=== PATIENT | female | born 1965 | race Two or more races ===

== ENCOUNTER 2022-05-12 11:28 | Emergency (ER) | payer OTHER ==
[~2022-05-12] VITALS: Ht 167.6 cm; Wt 65.0 kg
[2022-05-12 12:15] LABS: BASOPHILS % 0.6 % (0.0-2.0); HEMOGLOBIN. 10.7 g/dL (12.0-16.0); LYMPHOCYTES % 52.5 % (20.0-50.0); MEAN CORPUSCULAR HEMOGLOBIN 37.3 pg (28.0-32.0); MEAN CORPUSCULAR VOLUME 108.1 fL (81.0-99.0); MEAN PLATELET VOLUME 7.5 fl (7.4-10.4); MONOCYTES % 12.9 % (2.0-8.0); PLATELET 147 x1000/uL (130-400); RED BLOOD CELL COUNT 2.86 mill/uL (4.2-5.4); RED CELL DISTRIBUTION WIDTH 14.5 % (11.6-14.6)
[2022-05-12 12:22] LABS: CHLORIDE 103 mEq/L (98-107)
[2022-05-12 12:53] LABS: ETHANOL BLOOD 463 mg/dL
[2022-05-12] MEDS ORDERED: POTASSIUM CHLORIDE 20MEQ TABLET SR PO ONE (13:30)
[2022-05-12 15:16] LABS: CLARITY URINE CLEAR (CLEAR); COLOR URINE YELLOW (YELLOW); KETONES URINE NEGATIVE (NEGATIVE); LEUKOCYTE ESTERASE URINE NEGATIVE (NEGATIVE); NITRITE URINE NEGATIVE (NEGATIVE); OCCULT BLOOD URINE NEGATIVE (NEGATIVE); PH URINE 6.5 (4.5-8.0); PROTEIN URINE NEGATIVE (NEGATIVE); SPECIFIC GRAVITY URINE 1.003 (1.005-1.030); UROBILINOGEN URINE 0.2 E.U./dL (0.2-1.0)
[2022-05-12 16:03] LABS: *AMPHETAMINES SCREEN URINE NEGATIVE (NEGATIVE); *BARBITURATES SCREEN URINE NEGATIVE (NEGATIVE); *BENZODIAZEPINES SCREEN URINE NEGATIVE (NEGATIVE); *COCAINE SCREEN URINE NEGATIVE (NEGATIVE); CANNABINOID URINE SCREEN NEGATIVE (NEGATIVE); METHADONE URINE SCREEN NEGATIVE (NEGATIVE); OPIATES URINE SCREEN NEGATIVE (NEGATIVE); PHENCYCLIDINE URINE SCREEN NEGATIVE (NEGATIVE)
[2022-05-12] MEDS ORDERED: POTASSIUM CHLORIDE 20MEQ TABLET SR PO NR ×2 (17:30)
[2022-05-12 18:07] VITALS: BP 110/73
== END 2022-05-12 18:12 | disposition home or self-care (01) ==
LOC: EDBD 11:33 → ER 11:33
DX: T51.0X1A Toxic effect of ethanol, accidental (unintentional), initial encounter (principal); Y92.89 Other specified places as the place of occurrence of the external cause; E87.6 Hypokalemia
CPT/HCPCS: 36415; 80053; 80305; 80320; 81003; 85025; 99283; G0480

== ENCOUNTER 2023-07-21 16:11 | Emergency (ER) | payer OTHER ==
[~2023-07-21] VITALS: Ht 160 cm; Wt 70.0 kg
[~2023-07-21 16:11] MED LIST: CEPH500T MT; IBUP-2030 MT
[2023-07-21 16:29] VITALS: BP 109/76; PULSE 83; RESP 16; TEMP 98.2
[2023-07-21] MEDS ORDERED: SODIUM CHLORIDE 0.9% 1,000 ML IV ONE (16:45)
[2023-07-21] MEDS ORDERED: INSULIN REGULAR (HUMULIN R) 300UNITS/3ML VIAL SUBCUT ONE (16:45)
[2023-07-21 17:49] LABS: CHLORIDE 111 mEq/L (98-107); INDEX HEMOLYSI 1 (1-3); INDEX ICTERIC 1 (1-4); INDEX LIPEMIC 1 (1-3); POTASSIUM 3.6 mEq/L (3.5-5.1); SODIUM 141 mEq/L (136-145)
[2023-07-21 17:55] LABS: CARBON DIOXIDE 23 mEq/L (21-32); CREATININE 0.5 mg/dL (0.6-1.3); GLUCOSE 89 mg/dL (70-105); PHOSPHORUS 4.1 mg/dL (2.5-4.9); UREA NITROGEN BLOOD 7 mg/dL (7-21)
[2023-07-21 18:05] LABS: ETHANOL BLOOD 382 mg/dL (<10)
[2023-07-21] MEDS ORDERED: NAPR-1176 MT (19:04)
== END 2023-07-21 20:22 | disposition home or self-care (01) ==
LOC: ER 16:11
DX: M24.575 Contracture, left foot (principal); J45.909 Unspecified asthma, uncomplicated
CPT/HCPCS: 36415; 73620; 80048; 80051; 80320; 83735; 84100; 99284; J7030; G0480

== ENCOUNTER 2023-10-22 00:06 | Emergency (ER) | payer OTHER ==
[~2023-10-22] VITALS: Ht 167.6 cm; Wt 71.0 kg
[~2023-10-22 00:06] MED LIST changes: +NAPR-1176 MT
[2023-10-22] MEDS ORDERED: IPRATROPIUM BROMIDE (0.02%) 0.5MG/2.5ML NEB HHN STA (00:28)
[2023-10-22] MEDS ORDERED: METHYLPREDNISOLONE SOD SUCC 125MG/2ML (ACT-O-VIAL) IV STA (00:28)
[2023-10-22] MEDS ORDERED: SODIUM CHLORIDE 0.9% 1,000 ML IV ONE (00:30)
[2023-10-22] MEDS ORDERED: MAGNESIUM 2 G PREMIX 50 ML IV ONE (00:30)
[2023-10-22] MEDS ORDERED: AZITHROMYCIN 500MG/250ML 250 ML IV ONE (00:30)
[2023-10-22] MEDS ORDERED: CEFTRIAXONE 1GM PREMIX 50 ML IV ONE (00:30)
[2023-10-22] MEDS: ALBUTEROL (0.083%) 2.5MG/3ML NEB HHN SCH ×3 (01:00→01:55)
[2023-10-22 01:06] LABS: BG CARBOXYHEMOGLOBIN 7.5 % (0.5-1.5); BG DEOXYHEMOGLOBIN 0.4 % (0.0-5.0); BG FRACTION INSPIRED OXYGEN 100; BG HCO3 ACT 18.2 mmol/L (22.0-26.0); BG METHEMOGLOBIN 0.3 % (0.0-1.5); BG OXYGEN SATURATION 99.6 % (92.0-98.5); BG OXYHEMOGLOBIN 91.8 % (94.0-97.0); BG PCO2 25.4 mmHg (35.0-45.0); BG PH 7.474 (7.350-7.450); BG PO2 333.6 mmHg (75.0-100.0); BG SAMPLE SITE LEFT BRACHIAL; BG TOTAL HEMOGLOBIN 11.7 g/dL (12.0-18.0); BG VENT MODE MASK - NRB
[2023-10-22 01:30] LABS: BASOPHILS % 0.6 % (0.0-2.0); DIFFERENTIAL COMMENT 0; EOSINOPHILS % 3.5 % (0.0-5.0); HEMATOCRIT. 30.9 % (36.0-48.0); HEMOGLOBIN. 10.4 g/dL (12.0-16.0); LYMPHOCYTES % 38.3 % (20.0-50.0); MEAN CORPUSCULAR HEMOGLOBIN 34.7 pg (28.0-32.0); MEAN CORPUSCULAR HGB CONC 33.6 g/dL (31.0-37.0); MEAN CORPUSCULAR VOLUME 103.3 fL (81.0-99.0); MEAN PLATELET VOLUME 7.5 fl (7.4-10.4); MONOCYTES % 7.9 % (2.0-8.0); NEUTROPHILS % 49.7 % (40.0-76.0); PLATELET 309 x1000/uL (130-400); RED BLOOD CELL COUNT 2.99 mill/uL (4.2-5.4); RED CELL DISTRIBUTION WIDTH 15.7 % (11.6-14.6)
[2023-10-22 01:56] VITALS: PULSE 84; RESP 24; O2SAT 99
[2023-10-22 01:59] LABS: ALANINE AMINOTRANSFERASE 8 IU/L (10-49); ALBUMIN 3.6 g/dL (3.2-4.8); ASPARTATE AMINOTRANSFERASE 23 IU/L (<34); BILIRUBIN TOTAL 0.2 mg/dL (0.1-1.0); CARBON DIOXIDE 17 mEq/L (21-32); CHLORIDE 100 mEq/L (98-107); CREATININE 0.6 mg/dL (0.6-1.0); GLUCOSE 95 mg/dL (70-105); PROTEIN TOTAL 7.8 g/dL (6.0-8.3); SODIUM 132 mEq/L (136-145); UREA NITROGEN BLOOD 8 mg/dL (9-23)
[2023-10-22 02:25] LABS: TROPONIN I HIGH SENSITIVITY < 4 ng/L (3.0-34)
[2023-10-22 02:37] LABS: LACTIC ACID 3.8 mmol/L (0.4-2.0)
[2023-10-22] MEDS ORDERED: POTASSIUM CHLORIDE 20MEQ/PACKET PO NR (03:00)
[2023-10-22] MEDS ORDERED: NOREPINEPHRINE 8MG/250ML PMX 250 ML IV ONE (06:45)
[2023-10-22 12:00] VITALS: BP 114/72; PULSE 97; RESP 21; TEMP 98.4
== END 2023-10-22 12:46 | disposition left against medical advice (07) ==
LOC: ER 00:06 → EDBEDREQTM 07:38 → EDBEDREQ 07:38 → EDBEDREQSVC 07:43 → ER 12:46 → CANBEDREQ 12:58
DX: J45.909 Unspecified asthma, uncomplicated (principal); Z86.59 Personal history of other mental and behavioral disorders
CPT/HCPCS: 80053; 83880; 83605; 85025; 87040; 84484; 87804 ×2; 36415; 84145; 71045; 82805; 82375; 93005; 94644; 96368; 96365; 96366; 96375; 99291; 36600; J0456; J0696; J3490; J3475; J2930; Z7610 ×4; J7030

== ENCOUNTER 2023-11-11 14:21 | Emergency (ER) | payer OTHER ==
[~2023-11-11] VITALS: Ht 177.8 cm; Wt 73.0 kg
[2023-11-11 14:30] VITALS: BP 114/74; PULSE 102; RESP 16; TEMP 98.1; O2SAT 97
== END 2023-11-11 15:28 | disposition left against medical advice (07) ==
LOC: ER 14:21
DX: F12.10 Cannabis abuse, uncomplicated (principal); F10.129 Alcohol abuse with intoxication, unspecified; F41.9 Anxiety disorder, unspecified; J45.909 Unspecified asthma, uncomplicated; I10 Essential (primary) hypertension; Y90.9 Presence of alcohol in blood, level not specified
CPT/HCPCS: 99283

== ENCOUNTER 2024-01-14 16:20 | Emergency (ER) | payer OTHER ==
[~2024-01-14] VITALS: Ht 172.7 cm; Wt 73.0 kg
[2024-01-14 16:27] VITALS: O2SAT 98
[2024-01-14] MEDS: ONDANSETRON 4MG ODT PO ONE (17:23)
[2024-01-14 17:58] LABS: BASOPHILS % 0.5 % (0.0-2.0); DIFFERENTIAL COMMENT 0; EOSINOPHILS % 3.8 % (0.0-5.0); HEMATOCRIT. 33.9 % (36.0-48.0); HEMOGLOBIN. 11.2 g/dL (12.0-16.0); LYMPHOCYTES % 37.8 % (20.0-50.0); MEAN CORPUSCULAR HGB CONC 32.9 g/dL (31.0-37.0); MEAN CORPUSCULAR VOLUME 100.1 fL (81.0-99.0); MEAN PLATELET VOLUME 7.6 fl (7.4-10.4); MONOCYTES % 8.2 % (2.0-8.0); NEUTROPHILS % 49.7 % (40.0-76.0); PLATELET 205 x1000/uL (130-400); RED BLOOD CELL COUNT 3.39 mill/uL (4.2-5.4); RED CELL DISTRIBUTION WIDTH 17.6 % (11.6-14.6); WHITE BLOOD COUNT 5.3 x1000/uL (4.5-11.0)
[2024-01-14 18:14] LABS: HCG SCREEN NEGATIVE
[2024-01-14 18:38] LABS: ALANINE AMINOTRANSFERASE 20 IU/L (10-49); ALBUMIN 4.7 g/dL (3.2-4.8); ASPARTATE AMINOTRANSFERASE 54 IU/L (<34); BILIRUBIN TOTAL 0.2 mg/dL (0.1-1.0); CALCIUM 8.3 mg/dL (8.7-10.4); CARBON DIOXIDE 19 mEq/L (21-32); CHLORIDE 114 mEq/L (98-107); CREATININE 0.7 mg/dL (0.6-1.0); GLUCOSE 82 mg/dL (70-105); PROTEIN TOTAL 8.9 g/dL (6.0-8.3); SODIUM 135 mEq/L (136-145); UREA NITROGEN BLOOD 7 mg/dL (9-23)
[2024-01-14 18:44] LABS: POTASSIUM 6.7 mEq/L (3.5-5.1)
[2024-01-14] MEDS: KETOROLAC 60MG/2ML VIAL IM ONE (19:14)
[2024-01-14 19:20] LABS: ETHANOL BLOOD 336 mg/dL (<10)
[2024-01-14] MEDS ORDERED: FUROSEMIDE 100MG/10ML VIAL IV STA (19:26)
[2024-01-14] MEDS: SODIUM CHLORIDE 0.9% 1,000 ML IV ONE (19:30)
[2024-01-14] MEDS: ALBUTEROL (0.083%) 2.5MG/3ML NEB HHN ONE (20:30)
[2024-01-14 21:02] LABS: CARBON DIOXIDE 20 mEq/L (21-32); CHLORIDE 112 mEq/L (98-107); CREATININE 0.6 mg/dL (0.6-1.0); GLUCOSE 93 mg/dL (70-105); SODIUM 139 mEq/L (136-145); UREA NITROGEN BLOOD 9 mg/dL (9-23)
[2024-01-14] MEDS: SODIUM BICARBONATE 8.4% 1 MEQ/ML 50ML SYR IV ONE (21:35)
[2024-01-14] MEDS: CALCIUM CHLORIDE 1GM/10ML SYR IV ONE (21:35)
[2024-01-14] MEDS: FUROSEMIDE 40MG/4ML VIAL IV NR (21:35)
[2024-01-14 21:52] VITALS: BP 132/72; PULSE 77; RESP 16; TEMP 97.8
== END 2024-01-14 22:20 | disposition home or self-care (01) ==
LOC: ER 16:20
DX: F10.129 Alcohol abuse with intoxication, unspecified (principal); F41.9 Anxiety disorder, unspecified; J45.909 Unspecified asthma, uncomplicated; I10 Essential (primary) hypertension; Y90.8 Blood alcohol level of 240 mg/100 ml or more
CPT/HCPCS: 80053; 80048; 80320; 84703; 83690; 85025; 36415; 96361; 96372; 96374; 96375; 99285; J3490 ×2; J1940; J1885; J7030; Z7610 ×4; G0480

== ENCOUNTER 2024-04-06 07:20 | Emergency (ER) | payer SELFPAY ==
[~2024-04-06] VITALS: Ht 167.6 cm; Wt 60.0 kg
[2024-04-06 07:31] VITALS: O2SAT 100
[2024-04-06] MEDS ORDERED: DIPH103G TP (08:51)
[2024-04-06] MEDS ORDERED: HYDR28OI2 TP (08:51)
[2024-04-06 09:16] VITALS: BP 128/77; PULSE 99; RESP 20; TEMP 98.2
== END 2024-04-06 09:16 | disposition home or self-care (01) ==
LOC: ER 07:20
DX: L20.9 Atopic dermatitis, unspecified (principal); F41.9 Anxiety disorder, unspecified; J45.909 Unspecified asthma, uncomplicated; I10 Essential (primary) hypertension
CPT/HCPCS: 99282

== ENCOUNTER 2024-12-24 20:47 | Emergency (ER) | payer SELFPAY ==
[~2024-12-24] VITALS: Ht 167.6 cm; Wt 69.0 kg
[~2024-12-24 20:47] MED LIST changes: +DIPH103G TP; +HYDR28OI2 TP
[2024-12-24 21:40] LABS: BASOPHILS % 0.4 % (0.0-2.0); EOSINOPHILS % 2.8 % (0.0-5.0); HEMATOCRIT. 31.9 % (36.0-48.0); LYMPHOCYTES % 40.3 % (20.0-50.0); MEAN CORPUSCULAR HEMOGLOBIN 35.1 pg (28.0-32.0); MEAN CORPUSCULAR HGB CONC 31.4 g/dL (31.0-37.0); MEAN CORPUSCULAR VOLUME 111.9 fL (81.0-99.0); MEAN PLATELET VOLUME 7.4 fl (7.4-10.4); MONOCYTES % 7.7 % (2.0-8.0); NEUTROPHILS % 48.8 % (40.0-76.0); PLATELET 170 x1000/uL (130-400); RED BLOOD CELL COUNT 2.85 mill/uL (4.2-5.4); RED CELL DISTRIBUTION WIDTH 15.8 % (11.6-14.6); WHITE BLOOD COUNT 5.2 x1000/uL (4.5-11.0)
[2024-12-24 21:47] LABS: CHLORIDE 106 mEq/L (98-107); POTASSIUM 3.5 mEq/L (3.5-5.1); SODIUM 137 mEq/L (136-145)
[2024-12-24 21:48] LABS: CALCIUM 8.6 mg/dL (8.7-10.4); CARBON DIOXIDE 21 mEq/L (21-32)
[2024-12-24 21:53] LABS: CREATININE 0.6 mg/dL (0.6-1.0); GLUCOSE 97 mg/dL (70-105); UREA NITROGEN BLOOD 5 mg/dL (9-23)
[2024-12-24 22:03] LABS: DIFFERENTIAL COMMENT 1
[2024-12-24 22:04] LABS: ADD RBC MORPHOLOGY YES
[2024-12-24 23:06] LABS: ANISOCYTOSIS 1+; PLATELET ESTIMATE NORMAL
[2024-12-25 03:35] VITALS: BP 96/51; PULSE 102; RESP 18; TEMP 36.8; O2SAT 100
== END 2024-12-25 03:37 | disposition home or self-care (01) ==
LOC: ER 20:47
DX: F10.129 Alcohol abuse with intoxication, unspecified (principal); G40.909 Epilepsy, unspecified, not intractable, without status epilepticus; I10 Essential (primary) hypertension; J45.909 Unspecified asthma, uncomplicated; Z79.1 Long term (current) use of non-steroidal anti-inflammatories (NSAID); Y90.8 Blood alcohol level of 240 mg/100 ml or more
CPT/HCPCS: 36415; 80048; 80320; 85025; 99283; G0480

== ENCOUNTER 2025-02-17 19:02 | Emergency (ER) | payer MEDICARE ==
[~2025-02-17] VITALS: Ht 167.6 cm; Wt 67.0 kg
[2025-02-17 19:03] VITALS: BP 118/72; PULSE 84; RESP 16; TEMP 36.8; O2SAT 100
== END 2025-02-17 22:00 | disposition left against medical advice (07) ==
LOC: ER 19:04
DX: R07.89 Other chest pain (principal); I10 Essential (primary) hypertension; J45.909 Unspecified asthma, uncomplicated; Z79.1 Long term (current) use of non-steroidal anti-inflammatories (NSAID); F10.90 Alcohol use, unspecified, uncomplicated; V43.62XA Car passenger injured in collision with other type car in traffic accident, initial encounter; Y93.89 Activity, other specified; Y92.410 Unspecified street and highway as the place of occurrence of the external cause; Y99.8 Other external cause status; Y90.9 Presence of alcohol in blood, level not specified
CPT/HCPCS: 93005; 99283

== ENCOUNTER 2025-02-19 18:19 | Emergency (ER) | payer MEDICARE ==
[~2025-02-19] VITALS: Ht 167.6 cm; Wt 55.0 kg
[2025-02-19 18:22] VITALS: O2SAT 99
[2025-02-19 19:33] LABS: BASOPHILS % 0.2 % (0.0-2.0); DIFFERENTIAL COMMENT 0; EOSINOPHILS % 4.9 % (0.0-5.0); HEMATOCRIT. 31.3 % (36.0-48.0); HEMOGLOBIN. 10.2 g/dL (12.0-16.0); LYMPHOCYTES % 34.7 % (20.0-50.0); MEAN CORPUSCULAR HEMOGLOBIN 34.8 pg (28.0-32.0); MEAN CORPUSCULAR HGB CONC 32.6 g/dL (31.0-37.0); MEAN CORPUSCULAR VOLUME 106.6 fL (81.0-99.0); MONOCYTES % 5.9 % (2.0-8.0); NEUTROPHILS % 54.3 % (40.0-76.0); PLATELET 190 x1000/uL (130-400); RED BLOOD CELL COUNT 2.94 mill/uL (4.2-5.4); RED CELL DISTRIBUTION WIDTH 17.9 % (11.6-14.6); WHITE BLOOD COUNT 6.1 x1000/uL (4.5-11.0)
[2025-02-19 19:41] LABS: CHLORIDE 104 mEq/L (98-107); POTASSIUM 3.3 mEq/L (3.5-5.1); SODIUM 133 mEq/L (136-145)
[2025-02-19 19:42] LABS: CALCIUM 8.7 mg/dL (8.7-10.4); CARBON DIOXIDE 18 mEq/L (21-32)
[2025-02-19 19:47] LABS: CREATININE 0.8 mg/dL (0.6-1.0); GLUCOSE 95 mg/dL (70-105); UREA NITROGEN BLOOD 7 mg/dL (9-23)
[2025-02-19 19:51] LABS: TROPONIN I HIGH SENSITIVITY < 4 ng/L (3.0-34)
[2025-02-19 19:55] LABS: PROTHROMBIN TIME 10.9 sec (9.6-11.0)
[2025-02-19 19:56] LABS: ETHANOL BLOOD 316 mg/dL (<10)
[2025-02-19 21:50] VITALS: BP 113/70; PULSE 81; RESP 16; TEMP 36.4; O2SAT 94
[2025-02-19 21:53] LABS: TROPONIN I HIGH SENSITIVITY < 4 ng/L (3.0-34)
== END 2025-02-19 21:55 | disposition home or self-care (01) ==
LOC: ER 18:19
DX: R07.89 Other chest pain (principal); F10.129 Alcohol abuse with intoxication, unspecified; R51.9 Headache, unspecified; I10 Essential (primary) hypertension; F41.9 Anxiety disorder, unspecified; J45.909 Unspecified asthma, uncomplicated; Z79.899 Other long term (current) drug therapy; Z86.59 Personal history of other mental and behavioral disorders; V89.2XXA Person injured in unspecified motor-vehicle accident, traffic, initial encounter; Y93.89 Activity, other specified; Y92.89 Other specified places as the place of occurrence of the external cause; Y99.8 Other external cause status; Y90.8 Blood alcohol level of 240 mg/100 ml or more
CPT/HCPCS: 36415; 71045; 80048; 80320; 84484; 85025; 99284; G0480

== ENCOUNTER 2025-03-08 18:42 | Emergency (ER) | payer MEDICARE ==
[~2025-03-08] VITALS: Ht 167.6 cm; Wt 71.0 kg
[2025-03-08 18:46] VITALS: TEMP 36.9; O2SAT 98
[2025-03-08] MEDS: KETOROLAC 30MG/ML VIAL IM ONE (19:12)
[2025-03-08 19:24] LABS: BASOPHILS % 0.6 % (0.0-2.0); DIFFERENTIAL COMMENT 0; EOSINOPHILS % 2.5 % (0.0-5.0); HEMATOCRIT. 29.7 % (36.0-48.0); HEMOGLOBIN. 9.8 g/dL (12.0-16.0); LYMPHOCYTES % 45.6 % (20.0-50.0); MEAN CORPUSCULAR HEMOGLOBIN 34.2 pg (28.0-32.0); MEAN CORPUSCULAR HGB CONC 33.1 g/dL (31.0-37.0); MEAN CORPUSCULAR VOLUME 103.4 fL (81.0-99.0); MEAN PLATELET VOLUME 7.3 fl (7.4-10.4); MONOCYTES % 6.5 % (2.0-8.0); NEUTROPHILS % 44.8 % (40.0-76.0); PLATELET 234 x1000/uL (130-400); RED BLOOD CELL COUNT 2.87 mill/uL (4.2-5.4); RED CELL DISTRIBUTION WIDTH 17.4 % (11.6-14.6); WHITE BLOOD COUNT 4.9 x1000/uL (4.5-11.0)
[2025-03-08 19:31] LABS: CHLORIDE 109 mEq/L (98-107); POTASSIUM 3.6 mEq/L (3.5-5.1); SODIUM 139 mEq/L (136-145)
[2025-03-08 19:32] LABS: CARBON DIOXIDE 24 mEq/L (21-32)
[2025-03-08 19:33] LABS: CALCIUM 8.3 mg/dL (8.7-10.4)
[2025-03-08 19:35] LABS: PROTHROMBIN TIME 10.9 sec (9.6-11.0)
[2025-03-08 19:37] LABS: CREATININE 0.7 mg/dL (0.6-1.0); GLUCOSE 95 mg/dL (70-105)
[2025-03-08 19:38] LABS: UREA NITROGEN BLOOD 8 mg/dL (9-23)
[2025-03-08 20:06] LABS: TROPONIN I HIGH SENSITIVITY < 4 ng/L (3.0-34)
[2025-03-08] MEDS ORDERED: LIDO700A30 TP (20:09)
[2025-03-08 20:16] VITALS: BP 94/62; PULSE 89; RESP 16; O2SAT 100
== END 2025-03-08 20:37 | disposition home or self-care (01) ==
LOC: ER 18:42
DX: R07.89 Other chest pain (principal); I10 Essential (primary) hypertension; J45.909 Unspecified asthma, uncomplicated; F10.90 Alcohol use, unspecified, uncomplicated; Z79.1 Long term (current) use of non-steroidal anti-inflammatories (NSAID); Z79.899 Other long term (current) drug therapy; Y90.9 Presence of alcohol in blood, level not specified
CPT/HCPCS: 99285; 71045; 80048; 83880; 85025; 85610; 84484; 36415; 93005; 96372; J1885

== ENCOUNTER 2025-03-10 10:55 | Emergency (ER) | payer MEDICARE ==
[~2025-03-10] VITALS: Ht 167.6 cm; Wt 75.0 kg
[~2025-03-10 10:55] MED LIST changes: +LIDO700A30 TP
[2025-03-10 11:00] VITALS: O2SAT 98
[2025-03-10 11:28] LABS: DIFFERENTIAL COMMENT 0; EOSINOPHILS % 4.3 % (0.0-5.0); HEMATOCRIT. 26.1 % (36.0-48.0); HEMOGLOBIN. 8.8 g/dL (12.0-16.0); LYMPHOCYTES % 44.1 % (20.0-50.0); MEAN CORPUSCULAR HEMOGLOBIN 34.5 pg (28.0-32.0); MEAN CORPUSCULAR HGB CONC 33.7 g/dL (31.0-37.0); MEAN CORPUSCULAR VOLUME 102.3 fL (81.0-99.0); MEAN PLATELET VOLUME 7.3 fl (7.4-10.4); MONOCYTES % 11.3 % (2.0-8.0); NEUTROPHILS % 39.3 % (40.0-76.0); PLATELET 207 x1000/uL (130-400); RED BLOOD CELL COUNT 2.55 mill/uL (4.2-5.4); RED CELL DISTRIBUTION WIDTH 17.5 % (11.6-14.6); WHITE BLOOD COUNT 3.6 x1000/uL (4.5-11.0)
[2025-03-10] MEDS ORDERED: MORPHINE SULFATE 4 MG/ML INJ (FOR IV/IM USE) IV ONE (11:30)
[2025-03-10 11:38] LABS: CHLORIDE 107 mEq/L (98-107); SODIUM 138 mEq/L (136-145)
[2025-03-10 11:39] LABS: CARBON DIOXIDE 25 mEq/L (21-32)
[2025-03-10 11:40] LABS: CALCIUM 8.2 mg/dL (8.7-10.4)
[2025-03-10 11:44] LABS: CREATININE 0.7 mg/dL (0.6-1.0); GLUCOSE 105 mg/dL (70-105); UREA NITROGEN BLOOD 9 mg/dL (9-23)
[2025-03-10] MEDS ORDERED: ENOXAPARIN 80MG/0.8ML SYR SUBCUT ONE (11:45)
[2025-03-10 12:19] LABS: TROPONIN I HIGH SENSITIVITY < 4 ng/L (3.0-34)
[2025-03-10] MEDS: MORPHINE SULFATE 4 MG/ML INJ (FOR IV/IM USE) IV SCH (13:34)
[2025-03-10] MEDS ORDERED: ENOXAPARIN 80MG/0.8ML SYR SUBCUT SCH (14:00)
[2025-03-10 14:27] VITALS: BP 110/63; PULSE 82; RESP 15; TEMP 36.9; O2SAT 100
== END 2025-03-10 14:42 | disposition left against medical advice (07) ==
LOC: ER 10:55 → EDBEDREQ 14:23 → CANBEDREQ 14:29 → ER 14:42
DX: R07.89 Other chest pain (principal); J45.909 Unspecified asthma, uncomplicated; I10 Essential (primary) hypertension; F10.20 Alcohol dependence, uncomplicated; R06.02 Shortness of breath; Z79.899 Other long term (current) drug therapy; Y90.9 Presence of alcohol in blood, level not specified
CPT/HCPCS: 80048; 80320; 83880; 85025; 85379; 84484; 36415; 71045; 93005; 96374; 99291; J1650; J2270; 93880; G0480

== ENCOUNTER 2025-03-19 01:41 | Emergency (ER) | payer MEDICARE ==
[~2025-03-19] VITALS: Ht 167.6 cm; Wt 70.0 kg
[2025-03-19 02:38] VITALS: O2SAT 100
[2025-03-19 04:48] LABS: EOSINOPHILS % 6.1 % (0.0-5.0)
[2025-03-19 04:54] LABS: CHLORIDE 108 mEq/L (98-107); POTASSIUM 3.3 mEq/L (3.5-5.1); SODIUM 138 mEq/L (136-145)
[2025-03-19 04:55] LABS: CARBON DIOXIDE 19 mEq/L (21-32)
[2025-03-19 04:56] LABS: CALCIUM 8.8 mg/dL (8.7-10.4)
[2025-03-19 05:00] LABS: CREATININE 0.7 mg/dL (0.6-1.0); GLUCOSE 88 mg/dL (70-105)
[2025-03-19 05:08] LABS: UREA NITROGEN BLOOD 6 mg/dL (9-23)
[2025-03-19 05:16] LABS: BASOPHILS % 0.2 % (0.0-2.0); DIFFERENTIAL COMMENT 0; HEMATOCRIT. 27.5 % (36.0-48.0); HEMOGLOBIN. 9.1 g/dL (12.0-16.0); LYMPHOCYTES % 38.1 % (20.0-50.0); MEAN CORPUSCULAR HEMOGLOBIN 34.4 pg (28.0-32.0); MEAN CORPUSCULAR HGB CONC 33.1 g/dL (31.0-37.0); MEAN CORPUSCULAR VOLUME 103.8 fL (81.0-99.0); MEAN PLATELET VOLUME 8.2 fl (7.4-10.4); MONOCYTES % 7.7 % (2.0-8.0); NEUTROPHILS % 46.7 % (40.0-76.0); PLATELET 146 x1000/uL (130-400); RED BLOOD CELL COUNT 2.65 mill/uL (4.2-5.4); RED CELL DISTRIBUTION WIDTH 18.2 % (11.6-14.6); WHITE BLOOD COUNT 3.9 x1000/uL (4.5-11.0)
[2025-03-19 05:18] LABS: TROPONIN I HIGH SENSITIVITY < 4 ng/L (3.0-34)
[2025-03-19] MEDS: ACETAMINOPHEN 325MG TABLET PO ONE (06:31)
[2025-03-19 09:05] VITALS: BP 110/78; PULSE 85; RESP 18; TEMP 36.9; O2SAT 100
== END 2025-03-19 11:29 | disposition home or self-care (01) ==
LOC: ER 01:41
DX: S20.214A Contusion of middle front wall of thorax, initial encounter (principal); F12.10 Cannabis abuse, uncomplicated; I10 Essential (primary) hypertension; Z79.899 Other long term (current) drug therapy; Z86.59 Personal history of other mental and behavioral disorders; V49.9XXA Car occupant (driver) (passenger) injured in unspecified traffic accident, initial encounter; Y93.89 Activity, other specified; Y92.89 Other specified places as the place of occurrence of the external cause; Y99.8 Other external cause status
CPT/HCPCS: 36415; 71045; 80048; 84484; 85025; 99285